=== PATIENT | female | born 1945 | race Caucasian/White ===

== ENCOUNTER 2017-10-17 11:26 | Emergency (ER) | payer BC, MEDICARE ==
[~2017-10-17] VITALS: Ht 162.6 cm; Wt 68.9 kg
[~2017-10-17 11:26] MED LIST: AGRYLIN0.5 M1 PO; CLONIDINE; CLONIDINE HCL0.1 MG PO; FLAGYL250 MG PO; FLAGYL500 MG PO; FUROSEMIDE40 MG PO; HEMOCYTE PLUS1 EACH PO; HYDRALAZINE HCL25 MG PO; LASIX10 MG/ML; METOPROLOL SUCC25 MG; METOPROLOL TART25 MG PO; MULTI-VITAMIN1 EACH PO; PROBIOTIC; PROTONIX40 MG/ML PO; SERTRALINE HCL50 MG PO; SODIUM BICARBO650 MG PO; SUCRALFATE1 GM PO; VITAMIN D1000 UNIT PO; WARFARIN SODIUM2 MG PO; Z.0.COUMADIN2 MG; [UNRECOGNIZED DRUG - OTHER]
== END 2017-10-17 16:49 | disposition left against medical advice (07) ==
LOC: ER 11:26
DX: L03.116 Cellulitis of left lower limb (principal); L03.115 Cellulitis of right lower limb

== ENCOUNTER → 2019-09-03 | Day surgery (SDC) | payer BC, MEDICARE ==
[2019-09-02 11:16] LABS: BASOPHILS % 0.3 % (0.0-1.0); EOSINOPHILS # (AUTO) 0.1 (0.0-0.4); EOSINOPHILS % 1.1 % (0.0-6.0); HEMATOCRIT 31.8 % (34.2-44.1); HEMOGLOBIN 10.8 g/dL (12.0-16.0); LYMPHOCYTES # (AUTO) 1.1 (1.0-3.2); MEAN CORPUSCULAR HEMOGLOBIN 40.8 pg (28-32); MONOCYTES # (AUTO) 0.5 (0.2-0.8); MONOCYTES % 8.5 % (4.4-11.3); NEUTROPHILS # (AUTO) 4.5 (2.1-6.9); PLATELET COUNT 217 x10e3/uL (140-360); RED BLOOD COUNT 2.65 x10e6/uL (3.6-5.1); RED CELL DISTRIBUTION WIDTH 14.6 % (11.7-14.4)
[2019-09-02 11:35] LABS: ALBUMIN 3.8 g/dL (3.5-5.0); ALBUMIN/GLOBULIN RATIO 1.2 (0.8-2.0); ANION GAP 12.7 mmol/L (8-16); CALCIUM 9.4 mg/dL (8.4-10.2); CREATININE, SERUM 3.36 mg/dL (0.57-1.11); POTASSIUM 4.7 mmol/L (3.5-5.1)
[~2019-09-03] MED LIST changes: +ALLOPURINOL100 MG PO; +FENTANYL CITRATE/PF 100MCG/2 ML INJ ONE; +HYDROXYUREA500 MG PO; +HYOSCYAMINE 0.125 MG TAB ONE; +LIDOCAINE HCL 2% LOCAL INJ 5 ML SDV VIAL INJ ONE; +LINZESS72 MCG PO; +PANTOPRAZOLE SO40 MG PO; +PENTOXIFYLLINE400 MG PO; +PROPOFOL IV EMULSION 10 MG/ML 50 ML VIAL ONE; +SENSIPAR30 MG PO; +SUPER B-50 COM1 EACH PO
--- OUTSIDE RECORDS SUMMARY | 2019-09-03 11:27 | XMS REPORT ---
Author Author [facility] Address Unknown Phone Unavailable Care Team Providers Care Television Audio Engineer Name Role Phone MAYKEL TABOR Unavailable Unavailable Payers Payer Name Policy Type Policy Number Effective Date Expiration Date Problems This patient has no known problems. Allergies, Adverse Reactions, Alerts Allergy Name Allergy Type Status Severity Reaction(s) Onset Date Inactive Date Treating Clinician Comments Sulfa (Sulfonamide Antibiotics) DA Active U 2019-05-05 00:00:00 codeine DA Active U 2019-05-05 00:00:00 Sulfa (Sulfonamide Antibiotics) DA Active U 2014-11-05 00:00:00 codeine DA Active U 2014-11-05 00:00:00 Medications This patient has no known medications. Results Test Description Test Time Test Comments Text Results Atomic Results Result Comments BASIC METABOLIC PANEL 2019-05-05 10:22:00 SODIUM (test code=NA) 139 mmol/L 136-145 POTASSIUM (test code=K) 5.0 mmol/L 3.5-5.1 CHLORIDE (test code=CL) 109.0 mmol/L 98-107 CARBON DIOXIDE (test code=CO2) 21.0 mmol/L 21-32 ANION GAP (test code=GAP) 14.0 10-20 GLUCOSE (test code=GLU) 101 mg/dL 74-106 BLOOD UREA NITROGEN (test code=BUN) 50 mg/dL 7-18 GLOMERULAR FILTRATION RATE (test code=GFR) 13 mL/min >=60 Estimated GFR by using Modified MDRD formula.Chronic kidney disease is defined as either kidney damageor GFR <60 mL/min/1.73 m2 for >3 months. CREATININE (test code=CREAT) 3.40 mg/dL 0.55-1.02 Note change in reference range due to change in reagent. BUN/CREATININE RATIO (test code=BUN/CREA) 14.7 10-20 CALCIUM (test code=CA) 9.3 mg/dL 8.5-10.1 SERUM [id number] 10:22:00* Test Item Value Reference Range Comments SERUM IRON (test code=IRON) 108 ug/dL 50-175 TOTAL IRON BINDING [id number] 10:22:00* Test Item Value Reference Range Comments TOTAL IRON BINDING CAPACITY (test code=TIBC) 222 mcg/dL 250-450 [id number] 10:22:00* Test Item Value Reference Range Comments FERRITIN (test code=CARL) 1225 ng/mL 8-388 CBC W/AUTO [id number] 10:16:00* Test Item Value Reference Range Comments WHITE BLOOD CELL (test code=WBC) 4.2 K/mm3 4.5-12.5 RED BLOOD CELL (test code=RBC) 2.22 mill/mm3 3.7-5.2 HEMOGLOBIN (test code=HGB) 9.3 gram/dL 11.5-15.5 HEMATOCRIT (test code=HCT) 28.2 % 36.0-46.0 MEAN CELL VOLUME (test code=MCV) 127.0 fL 80-98 MEAN CELL HGB (test code=MCH) 41.9 picogram 27.0-33.0 MEAN CELL HGB CONCETRATION (test code=MCHC) 33.0 gram/dL 33.0-36.0 RED CELL DISTRIBUTION WIDTH (test code=RDW) 12.9 % 11.6-16.2 RED CELL DISTRIBUTION WIDTH SD (test code=RDW-SD) 61.0 fL 37.0-51.0 PLATELET COUNT (test code=PLT) 207 K/mm3 150-450 MEAN PLATELET VOLUME (test code=MPV) 9.7 fL 6.7-11.0 NEUTROPHIL % (test code=NT%) 68.3 % 39.0-69.0 IMMATURE GRANULOCYTE % (test code=IG%) 1.0 % 0.0-5.0 LYMPHOCYTE % (test code=LY%) 21.9 % 25.0-55.0 MONOCYTE % (test code=MO%) 7.6 % 0.0-10.0 EOSINOPHIL % (test code=EO%) 1.0 % 0.0-5.0 BASOPHIL % (test code=BA%) 0.2 % 0.0-1.0 NUCLEATED RBC % (test code=NRBC%) 0.0 % 0-0 NEUTROPHIL # (test code=NT#) 2.88 K/mm3 1.8-7.7 IMMATURE GRANULOCYTE # (test code=IG#) 0.04 x10 3/uL 0-0.03 LYMPHOCYTE # (test code=LY#) 0.92 K/mm3 1.0-5.0 MONOCYTE # (test code=MO#) 0.32 K/mm3 0-0.8 EOSINOPHIL # (test code=EO#) 0.04 K/mm3 0.0-0.5 BASOPHIL # (test code=BA#) 0.01 K/mm3 0.0-0.2 NUCLEATED RBC # (test code=NRBC#) 0.00 K/mm3 0.0-0.1 BASIC METABOLIC [id number] 10:12:00* Test Item Value Reference Range Comments SODIUM (test code=NA) 139 mmol/L 136-145 POTASSIUM (test code=K) 5.0 mmol/L 3.5-5.1 CHLORIDE (test code=CL) 109.0 mmol/L 98-107 CARBON DIOXIDE (test code=CO2) mmol/L 21-32 ANION GAP (test code=GAP) 10-20 GLUCOSE (test code=GLU) mg/dL 74-106 BLOOD UREA NITROGEN (test code=BUN) mg/dL 7-18 GLOMERULAR FILTRATION RATE (test code=GFR) mL/min >=60 CREATININE (test code=CREAT) mg/dL 0.55-1.02 BUN/CREATININE RATIO (test code=BUN/CREA) 10-20 CALCIUM (test code=CA) mg/dL 8.5-10.1 SERUM [id number] 10:12:00* Test Item Value Reference Range Comments SERUM IRON (test code=IRON) ug/dL 50-175 TOTAL IRON BINDING [id number] 10:12:00* Test Item Value Reference Range Comments TOTAL IRON BINDING CAPACITY (test code=TIBC) mcg/dL 250-450 [id number] 10:12:00* Test Item Value Reference Range Comments FERRITIN (test code=CARL) ng/mL 8-388 SMALL BOWEL SERIES [place] [id number] [place] [address] Patient Name: YADI AVINA MR #: [id number] : 1945 Age/Sex: 72/F Req #: [id number] Adm Physician: Ordered by: MAYKEL TABOR MD Report #: [id number] Location: DX Room/Bed: Procedure: [id number] DX/SMALL BOWEL SERIES Ex am Date: 09/20/17 Exam Time: 0900 REPORT STATUS : Signed PROCEDURE: SMALL BOWEL SERIES FLUOROSCOPY TIME: 0.1 MINUTES Air Kerma: 6.9 mGy Comparison: None. Indications: ANEMIA T echnique: Small bowel follow through exam was performed using oral barium. Preliminary image was obtained before administration of contrast and serial o verhead images were obtained after administration of oral barium. Fluoroscop y was performed and spot images were obtained. Findings: SMALL JUVENT[place] WEL FOLLOW THROUGH: Small bowel loops are normal in caliber and distributio n. Spot compression views of the terminal ileum are normal. The transit time was normal. Incidental note of gastroesophageal reflux on the 20 min jr image. IMPRESSION: Gastroesophageal reflux. Otherwise unr emarkable fluoroscopic small bowel series. Dictated by: Debbi Norton on 09/20/2017 at 12:22 Electronically approved by: Debbi Orozco M.D. on 09/20/2017 at 12:22 Dictated By: DEBBI OROZCO MD [employer] Signed By: DEBBI OROZCO MD on 09/20/17 1222 Transcribed By: STEWART on 09/20 1222 COPY TO: MAYKEL TABOR MD
[2019-09-03 12:23] LABS: INR 1.19; PROTHROMBIN TIME 15.7 seconds (11.9-14.5)
[2019-09-03 12:24] LABS: PARTIAL THROMBOPLASTIN TIME 45.3 seconds (23.8-35.5)
[2019-09-03 16:00] VITALS: BP 165/69
--- NOTE | 2019-09-03 21:49 | Operative Report ---
DATE OF PROCEDURE: 09/03/2019 SURGEON: Charan Otero MD PROCEDURES: EGD with biopsies and colonoscopy. REFERRING PHYSICIAN: Misa Francis MD. INDICATIONS FOR EGD: Anemia, dyspepsia. INDICATIONS FOR COLONOSCOPY: Surveillance colonoscopy, personal history of colon polyps, anemia, sigmoid colon suboptimally visualized on previous colonoscopy. MEDICATION: The patient was done under MAC please see anesthesiologist's note. PROCEDURE IN DETAIL: With the patient in left lateral decubitus position flexible fiberoptic Olympus gastroscope was introduced into the esophagus under direct visualization without any difficulty. The esophagus appeared to be within normal limits. The scope was then advanced with ease into the stomach traversing a small hiatal hernia. Mucosa overlying the antrum and the body revealed some patchy erythema and low-grade to moderate edema. Biopsies were obtained and sent to stain for H. pylori. Several hyperplastic-appearing polyps were noted in the body of the stomach and somewhat partially excised with the cold biopsy forceps. The pylorus was of normal contour and shape, it was intubated with ease and the scope was advanced all the way to the second portion of the duodenum. The scope was then withdrawn slowly mucosa overlying the proximal second portion and duodenal bulb appeared to be within normal limits. The scope was then withdrawn back into the stomach and retroflexed mucosa overlying the fundus and cardia appeared to be within normal limits. The scope was then straightened out it was subsequently withdrawn. The patient tolerated procedure well. IMPRESSION: 1. Normal esophagus. 2. Small hiatal hernia. 3. Gastritis, biopsies sent to stain for H. pylori. 4. Gastric polyps, body, some partially excised with the cold biopsy forceps. PLAN: Follow up histology. Continue Protonix 40 mg one p.o. q.a.m. a.c. The patient was then turned around after adequate lubrication of the anal canal. Flexible fiberoptic Olympus pediatric colonoscope was inserted into the rectum and it could not be advanced beyond the proximal sigmoid colon due to sharp angulation of the sigmoid colon, most likely secondary to adhesions. It was subsequently withdrawn and the EGD scope was inserted and was advanced with some difficulty to approximately 100 cm from the anal verge. Moderate amount of retained fecal material was noted in the descending colon and the proximal sigmoid colon. Diverticular disease was noted in the distal descending and the sigmoid. The sigmoid was suboptimally visualized due to excessive tortuosity and sharp angulation. The rectum grossly appeared to be within normal limits. The scope was then retroflexed into the distal rectum and the area around the dentate line grossly appeared to be within normal limits. The scope was then straightened out, it was subsequently withdrawn, the patient tolerated procedure well. IMPRESSION: 1. Colonoscopy to approximately 100 cm from the anal verge with EGD scope. 2. Suboptimal to poor prep. 3. Diverticulosis. 4. Sigmoid colon tortuous sharply angulated negotiated only with some difficulty with the EGD scope was suboptimally visualized. The patient will need an air-contrast barium enema. Charan Otero MD [facility] [place] /[id number] cc: Misa Francis MD
== END | disposition home or self-care (01) ==
LOC: OR 11:22
PROVIDERS: ATTEND Internal Medicine Gastroenterology
DX: K20.9 Esophagitis, unspecified (principal); Z86.010 Personal history of colon polyps; K29.70 Gastritis, unspecified, without bleeding; R19.5 Other fecal abnormalities; R10.30 Lower abdominal pain, unspecified; D64.9 Anemia, unspecified; Z86.718 Personal history of other venous thrombosis and embolism; Z86.73 Personal history of transient ischemic attack (TIA), and cerebral infarction without residual deficits; Z86.19 Personal history of other infectious and parasitic diseases; I50.9 Heart failure, unspecified; K31.89 Other diseases of stomach and duodenum; K44.9 Diaphragmatic hernia without obstruction or gangrene; K31.7 Polyp of stomach and duodenum; K57.30 Diverticulosis of large intestine without perforation or abscess without bleeding; K56.609 Unspecified intestinal obstruction, unspecified as to partial versus complete obstruction; Z88.5 Allergy status to narcotic agent; Z88.2 Allergy status to sulfonamides; I11.0 Hypertensive heart disease with heart failure
CPT/HCPCS: 36415 ×2; 43239; 45378; 80053; 85025; 85610; 85730; 93005; J2001; J2704; J3010